=== PATIENT | male | born 1960 | race Caucasian/White ===

== ENCOUNTER 2025-07-10 13:51 | Inpatient (IN) | payer MEDICARE, MEDICAID ==
[~2025-07-10] VITALS: Ht 167.6 cm; Wt 95.4 kg
[~2025-07-10 13:51] MED LIST: ACET-2708 PO; ASCO500C18 PO; ASPI-1160 PO; EMPA10TA PO; ERGO1250 PO; FERR325T6 PO; FLUD0.1T PO; PANT40TA51 PO; QUET25TA PO; ROSU40TA PO; TAMS-54 PO
[2025-07-10] MEDS: FUROSEMIDE 40MG/4ML VIAL IVP ONE (14:30)
[2025-07-10 15:45] LABS: BASOPHILS % 1.2 % (0.0-2.0); EOSINOPHILS % 4.2 % (0.0-5.0); HEMATOCRIT. 34.5 % (42.0-52.0); HEMOGLOBIN. 11.0 g/dL (14.0-18.0); LYMPHOCYTES % 17.8 % (20.0-50.0); MEAN PLATELET VOLUME 7.8 fl (7.4-10.4); MONOCYTES % 8.6 % (2.0-8.0); NEUTROPHILS % 68.2 % (40.0-76.0); PLATELET 315 x1000/uL (130-400); RED BLOOD CELL COUNT 4.31 mill/uL (4.7-6.1); RED CELL DISTRIBUTION WIDTH 15.9 % (11.6-14.6)
[2025-07-10 16:02] LABS: CREATININE 1.0 mg/dL (0.6-1.3); TROPONIN I HIGH SENSITIVITY 14 ng/L (3.0-53); UREA NITROGEN BLOOD 9 mg/dL (9-23)
[2025-07-10 16:03] LABS: ASPARTATE AMINOTRANSFERASE 10 IU/L (<34); BILIRUBIN DIRECT 0.2 mg/dL (<=3.0); BILIRUBIN TOTAL 0.6 mg/dL (0.1-1.0); PROTEIN TOTAL 6.8 g/dL (6.0-8.3)
[2025-07-10 16:04] LABS: INR 1.0
[2025-07-10] MEDS ORDERED: ACETAMINOPHEN 325MG TABLET PO PRN (16:45)
[2025-07-10] MEDS ORDERED: CLONIDINE 0.1MG TABLET PO PRN (16:45)
[2025-07-10] MEDS ORDERED: DOCUSATE SODIUM 100MG CAPSULE PO PRN (16:45)
[2025-07-10] MEDS: FUROSEMIDE 40MG/4ML VIAL IVP SCH (17:48)
[2025-07-10] MEDS: IPRATROPIUM/ALBUTEROL 0.5-3(2.5)MG/3ML NEB HHN PRN (18:02)
[2025-07-10 18:03] VITALS: PULSE 110; RESP 25; O2SAT 97
[2025-07-10 20:00] VITALS: BP 152/82; PULSE 111; PULSE 65; RESP 20; TEMP 36.6; TEMP 36.6404; O2SAT 97
[2025-07-10] MEDS ORDERED: IOHEXOL-350 100 ML BOTTLE ONE (20:16)
[2025-07-10 23:09] LABS: *AMPHETAMINES SCREEN URINE NEGATIVE (NEGATIVE); *BARBITURATES SCREEN URINE NEGATIVE (NEGATIVE); *BENZODIAZEPINES SCREEN URINE NEGATIVE (NEGATIVE); *COCAINE SCREEN URINE NEGATIVE (NEGATIVE); METHADONE URINE SCREEN NEGATIVE (NEGATIVE)
[2025-07-10 23:10] LABS: CANNABINOID URINE SCREEN NEGATIVE (NEGATIVE); ECSTASY MDMA SCREEN URINE NEGATIVE (NEGATIVE); OPIATES URINE SCREEN NEGATIVE (NEGATIVE); PHENCYCLIDINE URINE SCREEN NEGATIVE (NEGATIVE)
[2025-07-11] VITALS: BP 142/74; PULSE 100; RESP 20; TEMP 36.7; O2SAT 97
[2025-07-11 04:00] VITALS: BP 139/80; PULSE 86; RESP 18; TEMP 36.9; O2SAT 96
[2025-07-11 06:04] LABS: CREATININE 0.9 mg/dL (0.6-1.3)
[2025-07-11 06:05] LABS: UREA NITROGEN BLOOD 8 mg/dL (9-23)
[2025-07-11 06:06] LABS: ASPARTATE AMINOTRANSFERASE 10 IU/L (<34)
[2025-07-11 06:07] LABS: BILIRUBIN TOTAL 0.6 mg/dL (0.1-1.0); PROTEIN TOTAL 6.3 g/dL (6.0-8.3)
[2025-07-11 06:32] LABS: BASOPHILS % 0.6 % (0.0-2.0); EOSINOPHILS % 5.0 % (0.0-5.0); HEMATOCRIT. 32.2 % (42.0-52.0); HEMOGLOBIN. 10.5 g/dL (14.0-18.0); LYMPHOCYTES % 17.5 % (20.0-50.0); MEAN PLATELET VOLUME 7.8 fl (7.4-10.4); MONOCYTES % 11.0 % (2.0-8.0); NEUTROPHILS % 65.9 % (40.0-76.0); PLATELET 297 x1000/uL (130-400); RED BLOOD CELL COUNT 4.11 mill/uL (4.7-6.1); RED CELL DISTRIBUTION WIDTH 15.8 % (11.6-14.6)
[2025-07-11 08:00] VITALS: BP 147/81; PULSE 94; RESP 20; TEMP 36.1; O2SAT 97
[2025-07-11] MEDS: ACETYLCYSTEINE 200MG/ML 20% VIAL 4ML INH SCH (11:09)
[2025-07-11] MEDS: POTASSIUM CHLORIDE 20MEQ TABLET SR PO NR (11:09)
[2025-07-11] MEDS: FUROSEMIDE 40MG/4ML VIAL IVP SCH (11:09)
[2025-07-11] MEDS ORDERED: FUROSEMIDE 100MG/10ML VIAL IVP SCH (11:30)
[2025-07-11] MEDS ORDERED: DEXTROSE 50% WATER 50ML SYRINGE IV PRN (14:15)
[2025-07-11] MEDS: FINASTERIDE 5MG TABLET PO SCH (15:30)
[2025-07-11 16:00] VITALS: BP 138/88; PULSE 100; RESP 22; TEMP 36.5; O2SAT 98
[2025-07-11] MEDS: FUROSEMIDE 100MG/10ML VIAL IVP SCH (17:28)
[2025-07-11] MEDS: BLOOD SUGAR DIAGNOSTIC STRIP TEST SCH (17:40)
[2025-07-11] MEDS: INSULIN LISPRO 100 UNITS/ML SUBCUT SCH (18:10)
[2025-07-11] MEDS: TAMSULOSIN HCL 0.4MG SR CAPSULE PO SCH (18:43)
[2025-07-11 19:04] LABS: LACTATE DEHYDROGENASE 181 IU/L (120-246)
[2025-07-11 20:00] VITALS: BP 151/74; PULSE 101; RESP 18; TEMP 36.2; O2SAT 98
[2025-07-11 20:26] VITALS: PULSE 85; RESP 25; O2SAT 97
[2025-07-11] MEDS: IPRATROPIUM/ALBUTEROL 0.5-3(2.5)MG/3ML NEB HHN SCH (20:26)
[2025-07-11] MEDS ORDERED: ATORVASTATIN CALCIUM 40MG TABLET PO SCH (21:00)
[2025-07-11] MEDS ORDERED: QUETIAPINE FUMARATE 25MG TABLET PO SCH (21:00)
[2025-07-11] MEDS ORDERED: TAMSULOSIN HCL 0.4MG SR CAPSULE PO SCH (21:00)
[2025-07-11] MEDS: QUETIAPINE FUMARATE 25MG TABLET PO SCH (22:19)
[2025-07-11] MEDS: POTASSIUM CHLORIDE 20MEQ TABLET SR PO SCH (22:20)
[2025-07-11] MEDS: ATORVASTATIN CALCIUM 10MG TABLET PO SCH (22:20)
[2025-07-11] MEDS: FLUDROCORTISONE ACETATE 0.1MG TABLET PO SCH (22:20)
[2025-07-11] MEDS: ACETAMINOPHEN 325MG TABLET PO PRN (22:28)
[2025-07-11] MEDS: ONDANSETRON HCL 4MG/2ML INJ IV PRN (22:28)
[2025-07-12] VITALS (8 sets, daily range): BP systolic 101–118; BP diastolic 51–69; PULSE 74–107; RESP 16–22; TEMP 36.3–36.7; O2SAT 95–98
[2025-07-12 06:21] LABS: BASOPHILS % 0.8 % (0.0-2.0); EOSINOPHILS % 3.7 % (0.0-5.0); HEMATOCRIT. 30.8 % (42.0-52.0); HEMOGLOBIN. 9.9 g/dL (14.0-18.0); LYMPHOCYTES % 21.2 % (20.0-50.0); MEAN PLATELET VOLUME 7.7 fl (7.4-10.4); MONOCYTES % 11.3 % (2.0-8.0); NEUTROPHILS % 63.0 % (40.0-76.0); PLATELET 261 x1000/uL (130-400); RED BLOOD CELL COUNT 3.92 mill/uL (4.7-6.1); RED CELL DISTRIBUTION WIDTH 15.6 % (11.6-14.6)
[2025-07-12 06:44] LABS: CREATININE 1.1 mg/dL (0.6-1.3); UREA NITROGEN BLOOD 9 mg/dL (9-23)
[2025-07-12] MEDS: PANTOPRAZOLE 40MG DR TABLET PO SCH (07:40)
[2025-07-12 09:54] LABS: TROPONIN I HIGH SENSITIVITY 20 ng/L (3.0-53)
[2025-07-12] MEDS: ASCORBIC ACID 500 MG TABLET PO SCH (11:25)
[2025-07-12] MEDS: POTASSIUM CHLORIDE 20MEQ TABLET SR PO SCH ×2 (11:25→21:36)
[2025-07-12] MEDS: MAGNESIUM OXIDE 400MG TABLET PO SCH (11:26)
[2025-07-12] MEDS: MAGNESIUM 2 G PREMIX 50 ML IV ONE (12:08)
[2025-07-12 12:53] LABS: PROTEIN BODY FLUID 3.6 gm/dL
[2025-07-12 22:12] LABS: BODY FLUID MONOCYTES 3 %; BODY FLUID RBC 48500 /cu mm (0-2000); BODY FLUID WBC 288 /cu mm (0-200)
[2025-07-13] VITALS (11 sets, daily range): BP systolic 108–124; BP diastolic 62–70; PULSE 83–111; RESP 16–21; TEMP 36.2–36.7; O2SAT 91–98
[2025-07-13 06:51] LABS: BASOPHILS % 0.6 % (0.0-2.0); EOSINOPHILS % 4.5 % (0.0-5.0); HEMATOCRIT. 30.7 % (42.0-52.0); HEMOGLOBIN. 9.9 g/dL (14.0-18.0); LYMPHOCYTES % 22.3 % (20.0-50.0); MEAN PLATELET VOLUME 7.7 fl (7.4-10.4); MONOCYTES % 11.4 % (2.0-8.0); NEUTROPHILS % 61.2 % (40.0-76.0); PLATELET 271 x1000/uL (130-400); RED BLOOD CELL COUNT 3.92 mill/uL (4.7-6.1); RED CELL DISTRIBUTION WIDTH 15.5 % (11.6-14.6)
[2025-07-13 07:05] LABS: CREATININE 1.0 mg/dL (0.6-1.3)
[2025-07-13 07:07] LABS: UREA NITROGEN BLOOD 7 mg/dL (9-23)
[2025-07-13] MEDS ORDERED: LIDOCAINE HCL 1% 10 MG/ML 10ML VIAL ONE (08:54)
[2025-07-13] MEDS ORDERED: SODIUM BICARBONATE 4.2% 2.5MEQ/5ML VIAL IV ONE (08:54)
[2025-07-13] MEDS: PIPERACILLIN/TAZO 3.375G/50ML 50 ML IV SCH (13:16)
[2025-07-13] MEDS: METHYLPREDNISOLONE SOD SUCC 40MG/ML (ACT-O-VIAL) IV SCH (13:16)
[2025-07-13] MEDS: FUROSEMIDE 40MG/4ML VIAL IVP SCH (18:47)
[2025-07-13] MEDS: INSULIN LISPRO 100 UNITS/ML SUBCUT SCH (21:16)
[2025-07-13] MEDS: INSULIN GLARGINE 100 UNITS/ML SUBCUT SCH (22:58)
[2025-07-14] VITALS (11 sets, daily range): BP systolic 92–128; BP diastolic 51–81; PULSE 102–110; RESP 18–20; TEMP 36.4–37; O2SAT 91–99
[2025-07-14] MEDS ORDERED: DEXTROSE 50% WATER 50ML SYRINGE IV PRN (05:45)
[2025-07-14] MEDS: BLOOD SUGAR DIAGNOSTIC STRIP TEST SCH (05:55)
[2025-07-14] MEDS: INSULIN LISPRO 100 UNITS/ML SUBCUT SCH (07:15)
[2025-07-14 07:23] LABS: HEMATOCRIT. 31.6 % (42.0-52.0); HEMOGLOBIN. 10.3 g/dL (14.0-18.0); MEAN PLATELET VOLUME 8.3 fl (7.4-10.4); PLATELET 272 x1000/uL (130-400); RED BLOOD CELL COUNT 4.02 mill/uL (4.7-6.1); RED CELL DISTRIBUTION WIDTH 15.7 % (11.6-14.6)
[2025-07-14 07:42] LABS: CREATININE 1.3 mg/dL (0.6-1.3); UREA NITROGEN BLOOD 10.0 mg/dL (9-23)
[2025-07-14] MEDS: FUROSEMIDE 40MG TABLET PO SCH (18:09)
[2025-07-14] MEDS: INSULIN LISPRO 100 UNITS/ML SUBCUT NR (18:11)
[2025-07-14] MEDS: ACETYLCYSTEINE 200MG/ML 20% VIAL 4ML INH SCH (19:40)
[2025-07-14 20:51] LABS: BAND% 5.0 % (1.0-6.0); LYMPHOCYTES % MANUAL 5.0 % (20.0-50.0); MONOCYTES % MANUAL 4.0 % (2.0-8.0); NEUTROPHILS % MANUAL 86.0 % (45.0-75.0)
[2025-07-14 20:52] LABS: PLATELET ESTIMATE NORMAL
[2025-07-15] VITALS (11 sets, daily range): BP systolic 101–128; BP diastolic 52–80; PULSE 98–108; RESP 17–28; TEMP 32.8–36.7; O2SAT 90–99
[2025-07-15 06:40] LABS: HEMATOCRIT. 31.4 % (42.0-52.0); HEMOGLOBIN. 10.2 g/dL (14.0-18.0); MEAN PLATELET VOLUME 8.3 fl (7.4-10.4); PLATELET 287 x1000/uL (130-400); RED BLOOD CELL COUNT 4.04 mill/uL (4.7-6.1); RED CELL DISTRIBUTION WIDTH 15.4 % (11.6-14.6)
[2025-07-15 07:01] LABS: CREATININE 1.3 mg/dL (0.6-1.3)
[2025-07-15 07:02] LABS: UREA NITROGEN BLOOD 14.0 mg/dL (9-23)
[2025-07-15 07:08] LABS: INFLUENZA TYPE A Presumptive Negative (Pres. Neg.)
[2025-07-15 07:09] LABS: INFLUENZA TYPE B Presumptive Negative (Pres. Neg.); RESPIRATORY SYNCYTIAL VIRUS Not Detected (Not Detectd)
[2025-07-15] MEDS: INSULIN LISPRO 100 UNITS/ML SUBCUT NR ×2 (13:30→15:00)
[2025-07-15] MEDS: INSULIN REGULAR (HUMULIN R) 1000UNITS/10ML VIAL SUBCUT SCH (13:30)
[2025-07-15] MEDS: INSULIN GLARGINE 100 UNITS/ML SUBCUT SCH ×2 (14:20→21:27)
[2025-07-15] MEDS ORDERED: INSULIN REGULAR (HUMULIN R) 1000UNITS/10ML VIAL IV SCH (14:30)
[2025-07-15 17:09] LABS: LYMPHOCYTES % MANUAL 6.0 % (20.0-50.0); MONOCYTES % MANUAL 3.0 % (2.0-8.0); NEUTROPHILS % MANUAL 91.0 % (45.0-75.0); PLATELET ESTIMATE NORMAL
[2025-07-15] MEDS: METHYLPREDNISOLONE SOD SUCC 125MG/2ML (ACT-O-VIAL) IV SCH (21:17)
[2025-07-15] MEDS: ENOXAPARIN 30MG/0.3ML SYR SUBCUT SCH (21:30)
[2025-07-16] VITALS (8 sets, daily range): BP systolic 105–120; BP diastolic 56–80; PULSE 95–112; RESP 18–22; TEMP 36.3–37.5; O2SAT 94–99
[2025-07-16] MEDS: INSULIN LISPRO 100 UNITS/ML SUBCUT ONE (13:23)
[2025-07-16] MEDS: INSULIN LISPRO 100 UNITS/ML SUBCUT NR (13:30)
[2025-07-16] MEDS: INSULIN LISPRO 100 UNITS/ML SUBCUT SCH ×2 (15:42→17:22)
[2025-07-16 16:20] LABS: CLARITY URINE CLOUDY (CLEAR); COLOR URINE YELLOW (YELLOW); PH URINE 5.5 (4.5-8.0); PROTEIN URINE NEGATIVE (NEGATIVE); SPECIFIC GRAVITY URINE 1.022 (1.005-1.030)
[2025-07-16 16:25] LABS: GLUCOSE URINE 3+ (NEGATIVE); KETONES URINE NEGATIVE (NEGATIVE); NITRITE URINE NEGATIVE (NEGATIVE); OCCULT BLOOD URINE 2+ (NEGATIVE)
[2025-07-16 16:26] LABS: LEUKOCYTE ESTERASE URINE 2+ (NEGATIVE); UROBILINOGEN URINE 1.0 E.U./dL (0.2-1.0)
[2025-07-16 16:29] LABS: BACTERIA URINE 1+; SQUAMOUS EPITHELIAL CELL URINE RARE /lpf (RARE/1+)
[2025-07-16 16:30] LABS: YEAST URINE 1+
[2025-07-16] MEDS: INSULIN GLARGINE 100 UNITS/ML SUBCUT SCH (22:09)
[2025-07-17] VITALS: BP 111/61; PULSE 96; RESP 18; TEMP 36.7; O2SAT 96
[2025-07-17 04:00] VITALS: BP 113/68; PULSE 94; RESP 20; TEMP 36.5; O2SAT 97
[2025-07-17 08:00] VITALS: BP 112/68; PULSE 95; RESP 20; TEMP 37.8; O2SAT 96
[2025-07-17] MEDS: ENOXAPARIN 40MG/0.4ML SYR SUBCUT SCH (09:08)
[2025-07-17 12:00] VITALS: BP 119/67; RESP 18; TEMP 37.5; O2SAT 98
[2025-07-17 16:00] VITALS: BP 118/71; PULSE 94; RESP 18; TEMP 36.6; O2SAT 94
[2025-07-17 20:00] VITALS: BP 106/62; PULSE 107; RESP 18; TEMP 36.1; O2SAT 98
[2025-07-17] MEDS: GUAIFENESIN 600MG ER TABLET PO SCH (22:16)
[2025-07-17] MEDS: PREDNISONE 20MG TABLET PO SCH (22:16)
[2025-07-18] VITALS (7 sets, daily range): BP systolic 106–130; BP diastolic 60–79; PULSE 88–96; RESP 18–22; TEMP 35.6–37.3; O2SAT 92–98
[2025-07-18] MEDS: SODIUM CHLORIDE 3% FOR INH 4ML NEB INH SCH (06:00)
[2025-07-18 08:52] LABS: HEMATOCRIT. 36.0 % (42.0-52.0); HEMOGLOBIN. 11.7 g/dL (14.0-18.0); MEAN PLATELET VOLUME 8.2 fl (7.4-10.4); PLATELET 323 x1000/uL (130-400); RED BLOOD CELL COUNT 4.70 mill/uL (4.7-6.1); RED CELL DISTRIBUTION WIDTH 15.6 % (11.6-14.6)
[2025-07-18 09:13] LABS: CREATININE 1.2 mg/dL (0.6-1.3); UREA NITROGEN BLOOD 25 mg/dL (9-23)
[2025-07-18] MEDS ORDERED: METF-414 MT (13:13)
[2025-07-18] MEDS ORDERED: GLIP5TAB22 MT (13:13)
[2025-07-18] MEDS ORDERED: POTA-205 MT (13:13)
[2025-07-18] MEDS ORDERED: P20 MT (13:13)
[2025-07-18] MEDS ORDERED: FURO40TA5 PO (13:13)
[2025-07-18] MEDS ORDERED: FINA5TAB11 PO (13:13)
[2025-07-19] VITALS (25 sets, daily range): BP systolic 95–135; BP diastolic 63–85; PULSE 76–101; RESP 9–32; TEMP 36.3–37.2; O2SAT 93–99
[2025-07-19 13:53] LABS: LYMPHOCYTES % MANUAL 5.0 % (20.0-50.0); MONOCYTES % MANUAL 4.0 % (2.0-8.0); NEUTROPHILS % MANUAL 91.0 % (45.0-75.0)
[2025-07-19 13:54] LABS: PLATELET ESTIMATE NORMAL
[2025-07-19] MEDS: FUROSEMIDE 40MG/4ML VIAL IVP SCH (17:49)
[2025-07-19 18:46] LABS: HEMATOCRIT. 38.2 % (42.0-52.0); HEMOGLOBIN. 12.1 g/dL (14.0-18.0); MEAN PLATELET VOLUME 8.3 fl (7.4-10.4); PLATELET 340 x1000/uL (130-400); RED BLOOD CELL COUNT 4.90 mill/uL (4.7-6.1); RED CELL DISTRIBUTION WIDTH 15.7 % (11.6-14.6)
[2025-07-19 19:08] LABS: CREATININE 1.3 mg/dL (0.6-1.3)
[2025-07-19 19:09] LABS: UREA NITROGEN BLOOD 26 mg/dL (9-23)
[2025-07-19 19:10] LABS: ASPARTATE AMINOTRANSFERASE 26 IU/L (<34)
[2025-07-19 19:11] LABS: BILIRUBIN TOTAL 0.5 mg/dL (0.1-1.0); PROTEIN TOTAL 5.4 g/dL (6.0-8.3)
[2025-07-19 20:02] LABS: LYMPHOCYTES % MANUAL 5.0 % (20.0-50.0); MONOCYTES % MANUAL 4.0 % (2.0-8.0); NEUTROPHILS % MANUAL 91.0 % (45.0-75.0); PLATELET ESTIMATE NORMAL
[2025-07-20] VITALS (27 sets, daily range): BP systolic 107–140; BP diastolic 64–83; PULSE 75–114; RESP 16–30; TEMP 36.3–37.2; O2SAT 94–100
[2025-07-20 07:07] LABS: HEMATOCRIT. 36.7 % (42.0-52.0); HEMOGLOBIN. 11.8 g/dL (14.0-18.0); MEAN PLATELET VOLUME 8.3 fl (7.4-10.4); PLATELET 338 x1000/uL (130-400); RED BLOOD CELL COUNT 4.80 mill/uL (4.7-6.1); RED CELL DISTRIBUTION WIDTH 15.7 % (11.6-14.6)
[2025-07-20 07:21] LABS: UREA NITROGEN BLOOD 33 mg/dL (9-23)
[2025-07-20 08:02] LABS: CREATININE 0.5 mg/dL (0.6-1.3)
[2025-07-20 09:38] LABS: TROPONIN I HIGH SENSITIVITY 11 ng/L (3.0-53)
[2025-07-20] MEDS: ASPIRIN 81MG EC TABLET PO SCH (12:27)
[2025-07-20] MEDS ORDERED: PREDNISONE 20MG TABLET PO SCH (18:00)
[2025-07-20 18:07] LABS: LYMPHOCYTES % MANUAL 6.0 % (20.0-50.0); MONOCYTES % MANUAL 2.0 % (2.0-8.0); NEUTROPHILS % MANUAL 92.0 % (45.0-75.0); PLATELET ESTIMATE NORMAL
[2025-07-21] VITALS: BP 113/67; PULSE 80; RESP 18; TEMP 36.2; O2SAT 95
[2025-07-21 04:00] VITALS: BP 115/69; PULSE 78; RESP 16; O2SAT 96
[2025-07-21 08:00] VITALS: BP 121/73; PULSE 82; RESP 20; TEMP 37.1; O2SAT 96
[2025-07-21] MEDS: PREDNISONE 20MG TABLET PO SCH (09:53)
[2025-07-21] MEDS: FUROSEMIDE 100MG/10ML VIAL IVP SCH (09:55)
[2025-07-21] MEDS ORDERED: FURO40TA5 PO (10:43)
[2025-07-21 12:00] VITALS: BP 112/64; PULSE 87; RESP 20; TEMP 36.7
[2025-07-21 16:00] VITALS: BP 110/66; PULSE 90; RESP 25; TEMP 36.8; O2SAT 96
[2025-07-21 20:00] VITALS: BP 112/71; PULSE 100; RESP 24; TEMP 36.3; O2SAT 98
[2025-07-22] MEDS ORDERED: FUROSEMIDE 40MG TABLET PO SCH (09:00)
== END 2025-07-21 21:08 | DRG 291 ==
LOC: ER 13:51 → EDBEDREQTM 16:47 → EDBEDREQ 16:47 → 7WST 18:01 → 5EST 07-19 01:27
PROVIDERS: ADMIT Family Medicine Adult Medicine; ATTEND Family Medicine Adult Medicine
PROC: 0W993ZZ Drainage of Right Pleural Cavity, Percutaneous Approach (ICD-10-PCS; principal; 2025-07-12)
PROC: 0W993ZZ Drainage of Right Pleural Cavity, Percutaneous Approach (ICD-10-PCS; 2025-07-13)
DX: I11.0 Hypertensive heart disease with heart failure (principal); I50.23 Acute on chronic systolic (congestive) heart failure; J96.01 Acute respiratory failure with hypoxia; J18.9 Pneumonia, unspecified organism; J44.0 Chronic obstructive pulmonary disease with (acute) lower respiratory infection; J91.8 Pleural effusion in other conditions classified elsewhere; Z95.1 Presence of aortocoronary bypass graft; R16.0 Hepatomegaly, not elsewhere classified; D64.9 Anemia, unspecified; F32.9 Major depressive disorder, single episode, unspecified; E11.65 Type 2 diabetes mellitus with hyperglycemia; I34.0 Nonrheumatic mitral (valve) insufficiency; J98.19 Other pulmonary collapse; Z20.822 Contact with and (suspected) exposure to COVID-19; E87.6 Hypokalemia; I25.10 Atherosclerotic heart disease of native coronary artery without angina pectoris; M48.14 Ankylosing hyperostosis [Forestier], thoracic region; I42.9 Cardiomyopathy, unspecified; E78.5 Hyperlipidemia, unspecified; N40.1 Benign prostatic hyperplasia with lower urinary tract symptoms; R33.8 Other retention of urine; R31.9 Hematuria, unspecified; R53.81 Other malaise; F41.9 Anxiety disorder, unspecified; G62.9 Polyneuropathy, unspecified; E11.42 Type 2 diabetes mellitus with diabetic polyneuropathy; I95.1 Orthostatic hypotension; R26.9 Unspecified abnormalities of gait and mobility; D32.0 Benign neoplasm of cerebral meninges; G89.29 Other chronic pain; Z87.891 Personal history of nicotine dependence; I25.2 Old myocardial infarction; Z55.6 Problems related to health literacy; Z79.82 Long term (current) use of aspirin; Z79.84 Long term (current) use of oral hypoglycemic drugs; Z79.899 Other long term (current) drug therapy; Z86.73 Personal history of transient ischemic attack (TIA), and cerebral infarction without residual deficits; Z87.440 Personal history of urinary (tract) infections
CPT/HCPCS: 32555; 36415; 71045; 71275; 76700; 80048; 80053; 80076; 80305; 81003; 82010; 82040; 82962; 83036; 83615; 83735; 83880; 84145; 84484; 85025; 85379; 87070; 87420; 87426; 87804; 88108; 88312; 92610; 93005; 93970; 94070; 94640; 94664; 97116; 97162; 97164; 97166; 97168; 97530; 99291; A4606; J1650; J1815; J1938; J2003; J2405; J2543; J2919; J3475; J3490; J7512; J7608; Q9967

== ENCOUNTER 2025-08-10 18:50 | Inpatient (IN) | payer MEDICARE, MEDICAID ==
[~2025-08-10] VITALS: Ht 167.6 cm; Wt 95.3 kg
[~2025-08-10 18:50] MED LIST changes: +FINA5TAB11 PO; +FURO40TA5 PO; +GLIP5TAB22 MT; +METF-414 MT; +P20 MT; +POTA-205 MT
[2025-08-10 20:00] VITALS: BP 145/79; PULSE 94; PULSE 95; RESP 19; TEMP 36.3; TEMP 36.3624; O2SAT 98
[2025-08-10] MEDS ORDERED: ACETAMINOPHEN 325MG TABLET PO PRN (21:00)
[2025-08-10] MEDS ORDERED: HYDROCODONE/ACETAMINOPHEN 5/325MG TABLET PO PRN ×2 (22:00)
[2025-08-10] MEDS: INSULIN GLARGINE 100 UNITS/ML SUBCUT SCH (22:00)
[2025-08-10] MEDS ORDERED: DEXTROSE 50% WATER 50ML SYRINGE IV PRN (22:00)
[2025-08-11] MEDS: FAMOTIDINE 20MG TABLET PO SCH ×2 (00:43→22:13)
[2025-08-11] MEDS: ATORVASTATIN CALCIUM 10MG TABLET PO SCH (00:43)
[2025-08-11] MEDS: QUETIAPINE FUMARATE 25MG TABLET PO SCH (00:43)
[2025-08-11] MEDS: TAMSULOSIN HCL 0.4MG SR CAPSULE PO SCH (00:43)
[2025-08-11 02:13] LABS: CLARITY URINE CLOUDY (CLEAR); COLOR URINE YELLOW (YELLOW); GLUCOSE URINE 1+ (NEGATIVE); KETONES URINE NEGATIVE (NEGATIVE); LEUKOCYTE ESTERASE URINE 3+ (NEGATIVE); NITRITE URINE POSITIVE (NEGATIVE); OCCULT BLOOD URINE NEGATIVE (NEGATIVE); PH URINE >=9.0 (4.5-8.0); PROTEIN URINE 2+ (NEGATIVE); SPECIFIC GRAVITY URINE 1.021 (1.005-1.030); UROBILINOGEN URINE 2.0 E.U./dL (0.2-1.0)
[2025-08-11 06:10] LABS: RBC URINE 0-2 /hpf (0-2); WBC URINE 15-25 /hpf (0-2)
[2025-08-11 06:11] LABS: BACTERIA URINE 4+; SQUAMOUS EPITHELIAL CELL URINE NONE SEEN /lpf (RARE/1+)
[2025-08-11 06:12] LABS: TRIPLE PHOSPHATE CRYSTAL URINE 1+ /lpf
[2025-08-11] MEDS: FUROSEMIDE 40MG/4ML VIAL IVP SCH (06:18)
[2025-08-11] MEDS: BLOOD SUGAR DIAGNOSTIC STRIP TEST SCH (07:24)
[2025-08-11 08:00] VITALS: BP 145/87; PULSE 91; RESP 18; TEMP 36.6; O2SAT 97
[2025-08-11 08:22] LABS: CREATININE 0.9 mg/dL (0.6-1.3); UREA NITROGEN BLOOD 13 mg/dL (9-23)
[2025-08-11 08:23] LABS: PROTEIN TOTAL 5.6 g/dL (6.0-8.3)
[2025-08-11 08:24] LABS: ASPARTATE AMINOTRANSFERASE 10 IU/L (<34); BILIRUBIN TOTAL 0.5 mg/dL (0.1-1.0)
[2025-08-11] MEDS: POLYETHYLENE GLYCOL 3350 (17GM) 1 DOSE PACK PO SCH (09:00)
[2025-08-11] MEDS: INSULIN LISPRO 100 UNITS/ML SUBCUT SCH (09:00)
[2025-08-11] MEDS ORDERED: ENOXAPARIN 40MG/0.4ML SYR SUBCUT SCH (09:00)
[2025-08-11 09:06] LABS: BASOPHILS % 0.4 % (0.0-2.0); EOSINOPHILS % 3.9 % (0.0-5.0); HEMATOCRIT. 34.8 % (42.0-52.0); HEMOGLOBIN. 11.2 g/dL (14.0-18.0); LYMPHOCYTES % 28.7 % (20.0-50.0); MEAN PLATELET VOLUME 7.0 fl (7.4-10.4); MONOCYTES % 9.0 % (2.0-8.0); NEUTROPHILS % 58.0 % (40.0-76.0); PLATELET 220 x1000/uL (130-400); RED BLOOD CELL COUNT 4.47 mill/uL (4.7-6.1); RED CELL DISTRIBUTION WIDTH 17.2 % (11.6-14.6)
[2025-08-11] MEDS: ASPIRIN 81MG EC TABLET PO SCH (09:34)
[2025-08-11] MEDS: FINASTERIDE 5MG TABLET PO SCH (09:34)
[2025-08-11] MEDS: ASCORBIC ACID 500 MG TABLET PO SCH (09:34)
[2025-08-11] MEDS: PREDNISONE 5MG TABLET PO SCH (09:34)
[2025-08-11] MEDS: FLUDROCORTISONE ACETATE 0.1MG TABLET PO SCH (09:35)
[2025-08-11] MEDS: NYSTATIN POWDER 15GM TOP SCH (10:00)
[2025-08-11] MEDS: ENOXAPARIN 30MG/0.3ML SYR SUBCUT SCH (11:36)
[2025-08-11] MEDS ORDERED: SENNOSIDES/DOCUSATE SOD 8.6/50MG TABLET PO PRN (15:00)
[2025-08-11 20:00] VITALS: BP 141/73; PULSE 99; RESP 17; TEMP 36.4; O2SAT 99
[2025-08-11] MEDS: ACETAMINOPHEN 325MG TABLET PO PRN (22:46)
[2025-08-12 08:00] VITALS: BP 131/76; PULSE 94; RESP 17; TEMP 36.6; O2SAT 95
[2025-08-12 08:08] LABS: TROPONIN I HIGH SENSITIVITY 35 ng/L (3.0-53)
[2025-08-12 08:09] LABS: CREATININE 0.9 mg/dL (0.6-1.3); UREA NITROGEN BLOOD 10 mg/dL (9-23)
[2025-08-12 08:17] LABS: BASOPHILS % 0.4 % (0.0-2.0); EOSINOPHILS % 3.9 % (0.0-5.0); HEMATOCRIT. 34.6 % (42.0-52.0); HEMOGLOBIN. 11.3 g/dL (14.0-18.0); LYMPHOCYTES % 27.6 % (20.0-50.0); MEAN PLATELET VOLUME 6.9 fl (7.4-10.4); MONOCYTES % 9.5 % (2.0-8.0); NEUTROPHILS % 58.6 % (40.0-76.0); PLATELET 242 x1000/uL (130-400); RED BLOOD CELL COUNT 4.46 mill/uL (4.7-6.1); RED CELL DISTRIBUTION WIDTH 17.0 % (11.6-14.6)
[2025-08-12] MEDS: POTASSIUM CHLORIDE 20MEQ TABLET SR PO NR (10:56)
[2025-08-12 18:15] VITALS: BP 159/89; PULSE 107; RESP 19; O2SAT 95
[2025-08-12 18:29] VITALS: BP 147/84; PULSE 105; RESP 19; O2SAT 100
[2025-08-12] MEDS: TAMSULOSIN HCL 0.4MG SR CAPSULE PO SCH (21:19)
[2025-08-13 08:00] VITALS: BP 110/62; PULSE 104; RESP 18; TEMP 36.3; O2SAT 100
[2025-08-13 08:24] LABS: CREATININE 0.9 mg/dL (0.6-1.3)
[2025-08-13 08:25] LABS: PROTEIN TOTAL 6.0 g/dL (6.0-8.3); UREA NITROGEN BLOOD 9 mg/dL (9-23)
[2025-08-13 08:26] LABS: ASPARTATE AMINOTRANSFERASE 11 IU/L (<34); PHOSPHORUS 3.0 mg/dL (2.5-4.9)
[2025-08-13 08:27] LABS: BILIRUBIN TOTAL 0.6 mg/dL (0.1-1.0)
[2025-08-13 08:28] LABS: FOLIC ACID (FOLATE) SERUM 9.12 ng/mL (>5.38); VITAMIN B12 SERUM 233 pg/mL (211-911)
[2025-08-13 08:29] LABS: BASOPHILS % 0.4 % (0.0-2.0); EOSINOPHILS % 3.0 % (0.0-5.0); HEMATOCRIT. 35.7 % (42.0-52.0); HEMOGLOBIN. 11.7 g/dL (14.0-18.0); LYMPHOCYTES % 19.4 % (20.0-50.0); MEAN PLATELET VOLUME 6.6 fl (7.4-10.4); MONOCYTES % 10.2 % (2.0-8.0); NEUTROPHILS % 67.0 % (40.0-76.0); PLATELET 250 x1000/uL (130-400); RED BLOOD CELL COUNT 4.62 mill/uL (4.7-6.1); RED CELL DISTRIBUTION WIDTH 16.9 % (11.6-14.6)
[2025-08-13] MEDS ORDERED: NALOXONE HCL 0.4MG/ML VIAL IV PRN (12:00)
[2025-08-13] MEDS: POTASSIUM CHLORIDE 20MEQ TABLET SR PO NR (13:26)
[2025-08-13] MEDS: IRON SUCROSE COMPLEX 200 MG in SODIUM CHLORIDE 0.9% 100 ML IV SCH (13:26)
[2025-08-13] MEDS: ONDANSETRON HCL 4MG/2ML INJ IV PRN (13:26)
[2025-08-13] MEDS: MAGNESIUM 4 G PREMIX 100 ML IV NR (13:27)
[2025-08-13] MEDS: CYANOCOBALAMIN 1000MCG/ML VIAL IM SCH (13:55)
[2025-08-13 20:00] VITALS: BP 164/95; PULSE 106; RESP 18; TEMP 36.9; O2SAT 98
[2025-08-13] MEDS: CLONIDINE 0.1MG TABLET PO PRN (20:32)
[2025-08-14 08:00] VITALS: BP 131/80; PULSE 89; RESP 18; TEMP 36.2; O2SAT 98
[2025-08-14] MEDS: FUROSEMIDE 40MG TABLET PO SCH (09:51)
[2025-08-14] MEDS: AMLODIPINE 2.5MG TABLET PO SCH ×2 (14:07→21:02)
[2025-08-14 20:00] VITALS: BP 139/84; PULSE 108; RESP 18; TEMP 36.4; O2SAT 96
[2025-08-14 22:21] LABS: CREATININE 0.9 mg/dL (0.6-1.3); UREA NITROGEN BLOOD 11 mg/dL (9-23)
[2025-08-15 08:00] VITALS: BP 118/77; PULSE 105; RESP 18; TEMP 36.4; O2SAT 96
[2025-08-15 20:00] VITALS: BP 154/88; PULSE 108; RESP 19; TEMP 36.3; O2SAT 96
[2025-08-16 04:00] VITALS: BP 166/56; PULSE 76; RESP 19; TEMP 36.6; O2SAT 98
[2025-08-16 06:16] LABS: BASOPHILS % 0.4 % (0.0-2.0); EOSINOPHILS % 2.2 % (0.0-5.0); HEMATOCRIT. 32.2 % (42.0-52.0); HEMOGLOBIN. 10.7 g/dL (14.0-18.0); LYMPHOCYTES % 24.8 % (20.0-50.0); MEAN PLATELET VOLUME 6.5 fl (7.4-10.4); MONOCYTES % 10.9 % (2.0-8.0); NEUTROPHILS % 61.7 % (40.0-76.0); PLATELET 268 x1000/uL (130-400); RED BLOOD CELL COUNT 4.26 mill/uL (4.7-6.1); RED CELL DISTRIBUTION WIDTH 17.1 % (11.6-14.6)
[2025-08-16 07:07] LABS: CREATININE 0.9 mg/dL (0.6-1.3); UREA NITROGEN BLOOD 8 mg/dL (9-23)
[2025-08-16 08:00] VITALS: BP 134/72; PULSE 102; RESP 18; TEMP 36.7; O2SAT 96
[2025-08-16] MEDS: MAGNESIUM OXIDE 400MG TABLET PO SCH (17:01)
[2025-08-16 20:00] VITALS: BP 153/82; PULSE 103; RESP 19; TEMP 36.3; O2SAT 98
[2025-08-16] MEDS: CARVEDILOL 3.125 MG TABLET PO SCH (21:26)
[2025-08-17 08:00] VITALS: BP 110/67; PULSE 105; RESP 18; TEMP 36.4; O2SAT 97
[2025-08-17] MEDS: POTASSIUM CHLORIDE 10MEQ TABLET SR PO SCH (09:34)
[2025-08-17] MEDS: ERGOCALCIFEROL 50000UNITS CAPSULE PO SCH (09:36)
[2025-08-17 12:20] LABS: BASOPHILS % 0.4 % (0.0-2.0); EOSINOPHILS % 1.3 % (0.0-5.0); HEMATOCRIT. 31.7 % (42.0-52.0); HEMOGLOBIN. 10.4 g/dL (14.0-18.0); LYMPHOCYTES % 16.9 % (20.0-50.0); MEAN PLATELET VOLUME 6.3 fl (7.4-10.4); MONOCYTES % 9.0 % (2.0-8.0); NEUTROPHILS % 72.4 % (40.0-76.0); PLATELET 279 x1000/uL (130-400); RED BLOOD CELL COUNT 4.08 mill/uL (4.7-6.1); RED CELL DISTRIBUTION WIDTH 16.7 % (11.6-14.6)
[2025-08-17 12:34] LABS: CREATININE 1.0 mg/dL (0.6-1.3)
[2025-08-17 12:35] LABS: UREA NITROGEN BLOOD 7 mg/dL (9-23)
[2025-08-17 20:00] VITALS: BP 113/63; PULSE 78; RESP 18; TEMP 36.8; O2SAT 97
[2025-08-19 08:00] VITALS: BP 122/69; PULSE 89; RESP 18; TEMP 36.9; O2SAT 96
[2025-08-19] MEDS: GUAIFENESIN-DM 200MG-20MG/10ML UDC PO PRN (18:13)
[2025-08-19 20:00] VITALS: BP 128/77; PULSE 103; RESP 17; TEMP 36.4; O2SAT 95
[2025-08-20 08:00] VITALS: BP 129/80; PULSE 85; RESP 17; TEMP 36.5; O2SAT 98
[2025-08-20 20:00] VITALS: BP 126/75; PULSE 94; RESP 18; TEMP 36.3; O2SAT 98
[2025-08-21 08:00] VITALS: BP 125/73; PULSE 90; RESP 18; TEMP 36.5; O2SAT 98
[2025-08-21] MEDS ORDERED: POTA-189 PO (11:13)
[2025-08-21] MEDS ORDERED: COR3 PO (11:13)
[2025-08-21] MEDS ORDERED: LANTUSUD SUBCUT (11:13)
[2025-08-21] MEDS ORDERED: FURO40TA5 PO (11:13)
[2025-08-21] MEDS ORDERED: AMLO2.5T45 PO (11:13)
[2025-08-21 14:14] LABS: BASOPHILS % 0.6 % (0.0-2.0); EOSINOPHILS % 2.0 % (0.0-5.0); HEMATOCRIT. 32.1 % (42.0-52.0); HEMOGLOBIN. 10.6 g/dL (14.0-18.0); LYMPHOCYTES % 23.9 % (20.0-50.0); MEAN PLATELET VOLUME 6.7 fl (7.4-10.4); MONOCYTES % 9.5 % (2.0-8.0); NEUTROPHILS % 64.0 % (40.0-76.0); PLATELET 393 x1000/uL (130-400); RED BLOOD CELL COUNT 4.16 mill/uL (4.7-6.1); RED CELL DISTRIBUTION WIDTH 16.7 % (11.6-14.6)
[2025-08-21 14:22] LABS: CREATININE 1.1 mg/dL (0.6-1.3); UREA NITROGEN BLOOD 6 mg/dL (9-23)
[2025-08-21 20:00] VITALS: BP 131/70; PULSE 97; RESP 18; TEMP 36.8; O2SAT 97
[2025-08-22 08:00] VITALS: BP 120/69; PULSE 70; RESP 17; TEMP 36.4; O2SAT 98
[2025-08-22 12:25] VITALS: BP 120/69; PULSE 70; RESP 17; TEMP 97.5
== END 2025-08-22 13:55 | disposition home health service (06) | DRG 291 ==
PROVIDERS: ADMIT Physical Medicine & Rehabilitation Spinal Cord Injury Medicine; ATTEND Specialist
DX: I11.0 Hypertensive heart disease with heart failure (principal); I50.23 Acute on chronic systolic (congestive) heart failure; J96.00 Acute respiratory failure, unspecified whether with hypoxia or hypercapnia; E87.0 Hyperosmolality and hypernatremia; J91.8 Pleural effusion in other conditions classified elsewhere; N13.8 Other obstructive and reflux uropathy; B95.2 Enterococcus as the cause of diseases classified elsewhere; N39.0 Urinary tract infection, site not specified; F33.1 Major depressive disorder, recurrent, moderate; D64.9 Anemia, unspecified; J44.9 Chronic obstructive pulmonary disease, unspecified; E11.42 Type 2 diabetes mellitus with diabetic polyneuropathy; I34.0 Nonrheumatic mitral (valve) insufficiency; J98.11 Atelectasis; I42.9 Cardiomyopathy, unspecified; R16.0 Hepatomegaly, not elsewhere classified; I95.1 Orthostatic hypotension; N40.1 Benign prostatic hyperplasia with lower urinary tract symptoms; R31.9 Hematuria, unspecified; R33.9 Retention of urine, unspecified; R26.9 Unspecified abnormalities of gait and mobility; E87.6 Hypokalemia; I25.2 Old myocardial infarction; M48.14 Ankylosing hyperostosis [Forestier], thoracic region; E55.9 Vitamin D deficiency, unspecified; E78.5 Hyperlipidemia, unspecified; F41.1 Generalized anxiety disorder; G89.29 Other chronic pain; I25.10 Atherosclerotic heart disease of native coronary artery without angina pectoris; K59.00 Constipation, unspecified; D32.0 Benign neoplasm of cerebral meninges; E61.1 Iron deficiency; M54.9 Dorsalgia, unspecified; Z79.84 Long term (current) use of oral hypoglycemic drugs; Z86.73 Personal history of transient ischemic attack (TIA), and cerebral infarction without residual deficits; Z87.440 Personal history of urinary (tract) infections; Z87.891 Personal history of nicotine dependence; Z91.81 History of falling; Z95.1 Presence of aortocoronary bypass graft; Z79.899 Other long term (current) drug therapy; Z79.82 Long term (current) use of aspirin
CPT/HCPCS: 36415; 71045; 80048; 80053; 81003; 82140; 82306; 82607; 82728; 82746; 82962; 83036; 83540; 83550; 83735; 84100; 84134; 84443; 84484; 85025; 87077; 87186; 92523; 93005; 93306; 93970; 97110; 97112; 97116; 97140; 97162; 97166; 97530; 97535; A4615; J1650; J1815; J1938; J2405; J3420; J3475; J7050; J7512; A5200